=== PATIENT | female | born 1990 | race Caucasian/White ===

== ENCOUNTER 2017-07-25 13:27 | Emergency (ER) | payer OTHER ==
[2016-04-11 11:50] VITALS: BP 123/78
[~2017-07-25 13:27] MED LIST: BUDE10.2 IH; CIPR500S3 PO; CLON1TAB3 PO; HYDR-2678 PO; IBUP-1060 PO; IPRA4AER IH; METF750T2 PO; OMEP20TA8 PO; ONDA4TAB10 SL; ONDA4TAB7 PO; VENTOLIN HFA18 GM IH
== END 2017-07-25 13:59 | disposition left against medical advice (07) ==
LOC: ER 13:27
DX: Z53.21 Procedure and treatment not carried out due to patient leaving prior to being seen by health care provider (principal); Z88.5 Allergy status to narcotic agent; Z91.041 Radiographic dye allergy status; Z91.040 Latex allergy status; Z88.4 Allergy status to anesthetic agent